=== PATIENT | male | born 2000 | race African-American/Black ===

== ENCOUNTER 2022-05-03 13:37 | Emergency (ER) | payer MEDICAID ==
[~2022-05-03] VITALS: Ht 175.3 cm; Wt 63.0 kg
[2022-05-03 13:56] VITALS: BP 116/74
[2022-05-03] MEDS ORDERED: KETOROLAC 30MG/ML VIAL IM ONE (17:00)
[2022-05-03] MEDS ORDERED: IBUP-2029 MT (17:57)
== END 2022-05-03 18:33 | disposition home or self-care (01) ==
LOC: ER 14:03
DX: S09.8XXA Other specified injuries of head, initial encounter (principal); S06.0XAA Concussion with loss of consciousness status unknown, initial encounter; S00.83XA Contusion of other part of head, initial encounter; Y08.89XA Assault by other specified means, initial encounter; Y93.9 Activity, unspecified; Y92.9 Unspecified place or not applicable
CPT/HCPCS: 70450; 70486; 96372; 99284; J1885